=== PATIENT | female | born 1985 | race Two or more races ===

== ENCOUNTER 2025-01-19 16:58 | Emergency (ER) | payer MEDICAID, OTHER ==
[~2025-01-19] VITALS: Ht 167.6 cm; Wt 82.3 kg
[2025-01-19 17:06] VITALS: TEMP 98.1
[2025-01-19] MEDS: ONDANSETRON HCL 4 MG/2 ML VIAL IV ONE (17:23)
[2025-01-19] MEDS: MORPHINE SULFATE 4 MG/ML SYR/VIAL IV ONE (17:24)
--- NOTE | 2025-01-19 17:31 | ED.PDOC ---
History of Present Illness HPI Comments This is a 39-year-old female who comes in with chief complaint of injury to the right wrist. The patient was at work and climbing up to grab something off the top shelf and fell down and landed on her right wrist. The patient comes in with a co-worker with an obvious deformity to the right wrist. The patient states that she is having some numbness on her fingers. There is no discoloration at this time. Chief Complaint: Upper Extremity Time Seen by MD: 16:59 Primary Care Provider: UNKNOWN Reviewed Notes: Nurses Notes, Medications, Allergies (No allergies to medications) Allergies: Coded Allergies: NO KNOWN ALLERGIES (Unverified , 01/19/25) Information Source: Patient, Friend Mode of Arrival: Ambulatory Severity: Moderate Timing: Days Duration: Since onset Prehospital treatment: None Location: Right wrist deformity and pain Past Medical History PAST MEDICAL HISTORY: Denies Surgical History: Denies all surgeries PRECISION ASSEMBLY INSPECTOR History: No Pertinent PRECISION ASSEMBLY INSPECTOR History Family History Family History: No family hx of Cancer, No family hx of DM, No family hx of Heart ashley, No family hx of HTN Social History Smoker: Non-Smoker Alcohol: Denies ETOH Use Drugs: Denies Drug Use Lives In: Home Constitutional: denies: chills, diaphoresis, fatigue, fever, malaise, sweats, weakness, others EENTM: denies: blurred vision, double vision, ear bleeding, ear discharge, ear drainage, ear pain, ear ringing, eye pain, eye redness, hearing loss, mouth pain, mouth swelling, nasal discharge, nose bleeding, nose congestion, nose pain, photophobia, tearing, throat pain, throat swelling, voice changes, others Respiratory: denies: cough, hemoptysis, orthopnea, SOB at rest, shortness of breath, SOB with excertion, stridor, wheezing, others Cardiovascular: denies: chest pain, dizzy spells, diaphoresis, Dyspnea on exertion, edema, irregular heart beat, left arm pain, lightheadedness, palpitations, PND, syncope, others Gastrointestinal: denies: abdomen distended, abdominal pain, blood streaked bowels, constipated, diarrhea, dysphagia, difficulty swallowing, hematemesis, melena, nausea, poor appetite, poor fluid intake, rectal bleeding, rectal pain, vomiting, others Genitourinary: denies: abnormal vagina bleeding, burning, dyspareunia, dysuria, flank pain, frequency, hematuria, incontinence, pain, , vagina discharge, urgency, others Neurological: denies: dizziness, fainting, headache, left sided numbness, left sided weakness, numbness, paresthesia, pre-existing deficit, right sided numbness, right sided weakness, seizure, speech problems, tingling, tremors, weakness, others Musculoskeletal: reports: others (Right wrist deformity and pain); denies: back pain, gout, joint pain, joint swelling, muscle pain, muscle stiffness, neck pain Integumetry: denies: bruises, change in color, change in hair/nails, dryness, laceration, lesions, lumps, rash, wounds, others Allergic/Immunocompromised: denies: Difficulty Healing, Frequent Infections, Hives, Itching, others Hematologic/Lymphatic: denies: anemia, blood clots, easy bleeding, easy bruising, swollen glands, others Endocrine: denies: excessive hunger, excessive sweating, excessive thirst, excessive urination, flushing, intolerance to cold, intolerance to heat, unexplained weight gain, unexplained weight loss, others Psychiatric: denies: anxiety, bipolar disorder, depression, hopeless, panic disorder, schizophrenia, sleepless, suicidal, others Physical Exam General Appearance: Moderate Distress HEENT: Normal ENT Inspection, Pharynx Normal, TMs Normal Neck: Full Range of Motion, Non-Tender, Normal, Normal Inspection Respiratory: Chest Non-Tender, Lungs Clear, No Accessory Muscle Use, No Respiratory Distress, Normal Breath Sounds Cardiovascular: No Edema, No JVD, No Murmur, No Gallop, Normal Peripheral Pulses, Regular Rate/Rhythm Breast Exam: Deferred Gastrointestinal: No Organomegaly, Non Tender, No Pulsatile Mass, Normal Bowel Sounds, Soft Genitalia: Deferred Pelvic: Deferred Rectal: Deferred Extremities: No calf tenderness, Normal capillary refill, No pedal edema Musculoskeletal : Location: Right Extremity Location: Wrist Apperance: Deformity, Limited ROM, Tenderness: Severe Neurologic: Alert, operational trainer II-XII nml as Tested, No Motor Deficits, Normal Affect, Normal Mood, No Sensory Deficits Cerebellar Function: Normal Reflexes: Normal Skin: Dry, Normal Color, Warm Lymphatic: No Adenopathy Was a procedure done? Was a procedure done?: No Differential Dx Considerations may include: Fracture, strain, contusion, dislocation X-Ray, Labs, Meds, VS Vital Signs Date Time Temp Pulse Resp B/P (MAP) Pulse Ox O2 Delivery O2 Flow Rate FiO2 01/19/25 18:00 71 23 114/72 01/19/25 17:31 80 16 135/76 (95) 99 01/19/25 17:24 83 22 135/76 01/19/25 17:06 98.1 86 16 138/77 (97) 98 98.1 Lab Test 01/19/25 18:07 Range/Units White Blood Count 9.7 4.4-10.8 10^3/uL Red Blood Count 4.54 4.0-5.20 10^6/uL Hemoglobin 13.2 12.2-16.2 g/dL Hematocrit 40.7 36.0-46.0 % Mean Corpuscular Volume 89.7 80.0-100.0 fL Mean Corpuscular Hemoglobin 29.1 28.0-32.0 pg Mean Corpuscular Hemoglobin Concent 32.5 32.0-36.0 g/dL Red Cell Distribution Width 13.3 11.8-14.3 % Platelet Count 232 140-450 10^3/uL Mean Platelet Volume 9.8 6.9-10.8 fL Neutrophils (%) (Auto) 52.8 37.0-80.0 % Lymphocytes (%) (Auto) 36.4 10.0-50.0 % Monocytes (%) (Auto) 8.3 0.0-12.0 % Eosinophils (%) (Auto) 1.3 0.0-7.0 % Basophils (%) (Auto) 1.2 0.0-2.0 % Neutrophils # (Auto) 5.1 1.6-8.6 10 ^3/uL Lymphocytes # (Auto) 3.5 0.4-5.4 10 ^3/uL Monocytes # (Auto) 0.8 0-1.3 10 ^3/uL Eosinophils # (Auto) 0.1 0-0.8 10 ^3/uL Basophils # (Auto) 0.1 0-0.2 10 ^3/uL Nucleated Red Blood Cells 0.1 % Prothrombin Time 10.4 9.3-11.8 sec Prothrombin Time INR 0.98 0.9-1.15 Activated Partial Thromboplast Time 25.6 24.5-34.5 SEC Sodium Level 139 136-145 mmol/L Potassium Level 3.5 3.5-5.1 mmol/L Chloride Level 106 98-107 mmol/L Carbon Dioxide Level 22 20-31 mmol/L Anion Gap 11 5-15 Blood Urea Nitrogen 11 9-23 mg/dL Creatinine 0.92 0.550-1.02 mg/dL Glomerular Filtration Rate Calc 81 >90 mL/min BUN/Creatinine Ratio 12.0 10.0-20.0 Serum Glucose 119 H 74-106 mg/dL Calcium Level 9.8 8.7-10.4 mg/dL Current Medications Medications (Trade) Dose Ordered Sig/Sharon Route Start Time Stop Time Status Last Admin Morphine Sulfate 4 mg ONCE ONCE IV 01/19/25 17:15 01/19/25 17:16 DC 01/19/25 17:24 Ondansetron HCl (Zofran) 4 mg ONCE ONCE IV 01/19/25 17:15 01/19/25 17:16 DC 01/19/25 17:23 Sodium Chloride 1,000 ml @ 1,000 mls/hr Q1H ONCE IV 01/19/25 18:00 01/19/25 18:59 DC 01/19/25 18:00 Ketamine HCl (Ketalar) 160 mg ONCE ONCE IV 01/19/25 19:30 01/19/25 19:31 DC 01/19/25 19:37 Hep-Lock was established The patient was given morphine 4 mg IV push The patient is given Zofran 4 mg IV push for the nausea X-ray of the right wrist shows: FINDINGS/IMPRESSION: Markedly displaced fracture of the distal radial metadiaphysis with intra- articular extension. The distal radial fracture segments are displaced dorsally by 2 cm. Subtle lucency scaphoid waist could represent scaphoid waist fracture. Correlate with point tenderness. We contacted the orthopedic surgeon and they did come in and reduce the patient without any difficulty It required ketamine for sedation The patient was then splinted and will follow up with the orthopedic surgeon for scheduling surgery as an outpatient The patient will be given a prescription of [place] The patient's CBC and chemistry panel is within normal limits The patient did receive some Zofran for the vomiting that took place post ketamine X-ray was done post reduction and shows: FINDINGS/IMPRESSION: Interval reduction with improved alignment of distal radial fracture. Soft tissue swelling is seen around the wrist and forearm. Images Reviewed?: Images reviewed and evaluated by me Time of 1ST Reevaluation: 17:32 Reevaluation 1ST: Unchanged Patient Education/Counseling: Diagnosis, Treatment, Prognosis, Need For Follow Up Family Education/Counseling: No Family Present SEPSIS Sepsis Screen Date sepsis recognized/suspect: Jan 19, 2025 Time Sepsis recognized/suspect: 1657 Recent Procedure: No On Antibiotic Therapy: No Respiratory Rate >20: No Heart Rate >90: No Temp<36 C (96.8 F) or >38.3 C: No SBP <90 or MAP <65 mmHG: No New Acute Mental Status Change: No Is the patient on CPAP, BIPAP,: No Physician Orders Heplock Iv (01/19/25 17:05) Casework Specialist (01/19/25 17:05) Blood Pressure (01/19/25 17:05) Pulse Oximetry (01/19/25 17:05) R Wrist 2 View Xray (01/19/25 17:05) R Wrist 2 View Xray (01/19/25 19:00) Sedation (01/19/25 ) Vital Signs Date Time Temp Pulse Resp B/P (MAP) Pulse Ox O2 Delivery O2 Flow Rate FiO2 01/19/25 18:00 71 23 114/72 01/19/25 17:31 80 16 135/76 (95) 99 01/19/25 17:24 83 22 135/76 01/19/25 17:06 98.1 86 16 138/77 (97) 98 98.1 Laboratory Tests Test 01/19/25 18:07 White Blood Count 9.7 10^3/uL (4.4-10.8) Medications Medications Dose Ordered Sig/Sharon Route Start Time Stop Time Status Last Admin Dose Admin Ketamine HCl 160 mg ONCE ONCE IV 01/19/25 19:30 01/19/25 19:31 DC 01/19/25 19:37 Morphine Sulfate 4 mg ONCE ONCE IV 01/19/25 17:15 01/19/25 17:16 DC 01/19/25 17:24 Ondansetron HCl 4 mg ONCE ONCE IV 01/19/25 17:15 01/19/25 17:16 DC 01/19/25 17:23 Sodium Chloride 1,000 ml @ 1,000 mls/hr Q1H ONCE IV 01/19/25 18:00 01/19/25 18:59 DC 01/19/25 18:00 Departure 1 Departure Time of Disposition: 17:32 Impression: Primary Impression: Right wrist fracture Qualified Codes: S62.101A - Fracture of unspecified carpal bone, right wrist, initial encounter for closed fracture Disposition: 01 HOME / SELF CARE / HOMELESS Condition: Fair Discharged With: Self Critical Care Note Critical Care Time?: No Stability Stability form required: No Heart Score Heart Score: Heart Score Response (Comments) Value History N/A 0 EKG N/A 0 Age N/A 0 Risk Factors N/A 0 Troponin N/A 0 Total 0 ZEINAB SMART MD Jan 19, 2025 17:31
[2025-01-19] MEDS: SODIUM CHLORIDE 0.9% 1,000 ML IV ONE (18:00)
--- NOTE | 2025-01-19 18:00 | DVH ---
Indication: trauma Technique: XY R WRIST 2 VIEW XRAYXY Comparison: None FINDINGS/IMPRESSION: Markedly displaced fracture of the distal radial metadiaphysis with intra-articular extension. The di stal radial fracture segments are displaced dorsally by 2 cm. Subtle lucency scaphoid waist could represent scaphoid waist fracture. Correlate with jeffrey mahmood
[2025-01-19 18:17] LABS: Hematocrit 40.7 % (36.0-46.0); Hemoglobin 13.2 g/dL (12.2-16.2); Mean Corpuscular Hemoglobin 29.1 pg (28.0-32.0); Mean Corpuscular Volume 89.7 fL (80.0-100.0); Nucleated Red Blood Cells % 0.1 %
[2025-01-19 18:26] LABS: Chloride 106 mmol/L (98-107); Sodium 139 mmol/L (136-145)
[2025-01-19 18:27] LABS: Anion Gap 11 (5-15); Carbon Dioxide 22 mmol/L (20-31)
[2025-01-19 18:28] LABS: Calcium 9.8 mg/dL (8.7-10.4); Potassium 3.5 mmol/L (3.5-5.1)
[2025-01-19 18:32] LABS: Glucose 119 mg/dL (74-106)
[2025-01-19 18:33] LABS: BUN/Creatinine Ratio 12.0 (10.0-20.0); Blood Urea Nitrogen 11 mg/dL (9-23)
[2025-01-19 18:40] LABS: INR 0.98 (0.9-1.15); Partial Thromboplastin Time 25.6 SEC (24.5-34.5); Prothrombin Time 10.4 sec (9.3-11.8)
[2025-01-19] MEDS: LIDOCAINE 1% HCL (LOCAL ANESTH.) INJ 20ML MDV ONE (18:51)
[2025-01-19] MEDS: LIDOCAINE 1% HCL (LOCAL ANESTH.) INJ 20ML MDV ID ONE (18:52)
[2025-01-19] MEDS: KETAMINE 50mg/ML 10ml Vial (500mg/10ml) IV ONE (19:37)
[2025-01-19 19:45] VITALS: BP 124/74; PULSE 79; RESP 16; RESP 17; O2SAT 99
[2025-01-19 20:00] VITALS: PULSE 105
--- NOTE | 2025-01-19 20:27 | DVH ---
CLINICAL INDICATION: guidance for reduction TECHNIQUE: XY right WRIST 2 VIEW XRAY Comparison: XY R WRIST 2 VIEW XRAY on DOS: 01/19/25 FINDINGS/IMPRESSION: Interval reduction with improved alignment of distal radial fracture. Soft tissue swelling is seen around the wrist and forearm.
[2025-01-19] MEDS ORDERED: HYDR-4902 PO (20:57)
[2025-01-19] MEDS: ONDANSETRON HCL 4 MG/2 ML VIAL ONE (20:58)
--- NOTE | 2025-01-19 21:55 | DVHINCON2 ---
Consult Note Consult Consult Note reason for Consult: Right wrist injury after ground-level fall --- HISTORY OF PRESENT ILLNESS: Ms. Grey presented to the Emergency Department after sustaining a ground- level fall onto her right wrist. An X-ray confirmed a distal radius fracture, and orthopedics was consulted for evaluation, reduction, and treatment planning. The patient denied numbness, tingling, or weakness in the affected extremity. She reported localized wrist pain, without associated pain in the elbow or shoulder. --- PHYSICAL EXAMINATION (Right Upper Extremity): Wrist: Visible deformity noted, consistent with distal radius fracture. No open skin lesions No discharge No signs of infection Neurovascular: Grossly intact. Patient able to move all fingers following reduction. Capillary refill less than 2 seconds. POST REDUCTION Neurovascular: Grossly intact. Patient able to move all fingers following reduction. Capillary refill less than 2 seconds. Elbow: Full range of motion, no tenderness Shoulder: Full range of motion, no tenderness Splint Status: Sugar-tong splint and sling in place. Sling supports the right upper extremity. --- IMAGING REVIEW: Initial X-ray (Right Wrist): Displaced distal radius fracture, Possible scaphoid fracture? Post-Reduction X-ray: Improved alignment of the distal radius noted. No evidence of additional fractures. --- PROCEDURE: Procedure: Closed reduction of right distal radius fracture Consent: Oral consent obtained from the patient after discussion of procedure, risks, and benefits Sedation: Provided by Dr. Lawrence, ER Physician, using ketamine Reduction: Performed successfully. Immobilization: Right upper extremity placed in sugar-tong splint with sling Monitoring: Patient monitored for 25 minutes post-procedure, awake, alert, and oriented upon discharge from ortho service --- DISCUSSION & PLAN: Case discussed with Dr. Reyes (Orthopedic Surgeon), who agrees that patient will likely require surgical intervention if fracture alignment is not maintained Outpatient orthopedic follow-up scheduled within one week with repeat Xray, Also at followup obtain CT for Schaphoid eval Continue in sugar-tong splint until swelling improves Provided detailed splint precautions, including signs of worsening pain, numbness, tingling, or tightness Pain management to be continued per ER protocol No acute concerns at this time ER return for new or worsening s/s Disposition appropriate for outpatient management pending reassessment in ortho clinic Plan discussed with: Patient, Other (bedside nurse and ER physician) Visit Coding Surgery Date of Service if different f: Jan 19, 2025 Billing Provider: COLEEN HATHAWAY Surgery Visit Codes: 52306 - INP CONSULT <55 MIN COLEEN HATHAWAY Jan 19, 2025 21:54
== END 2025-01-19 22:15 | disposition home or self-care (01) ==
LOC: ER 16:58
DX: S62.101A Fracture of unspecified carpal bone, right wrist, initial encounter for closed fracture (principal); W19.XXXA Unspecified fall, initial encounter; Y93.89 Activity, other specified; Y92.89 Other specified places as the place of occurrence of the external cause; Y99.8 Other external cause status
CPT/HCPCS: 25605; 36415; 73100; 80048; 85025; 85610; 85730; 96361; 96374; 96375; 96376; 99285; J2003; J2270; J2405; J7030

== ENCOUNTER 2025-02-11 11:40 | Outpatient (CLI) | payer MEDICAID ==
[~2025-02-11 11:40] MED LIST: HYDR-4902 PO
[2025-02-11 12:41] LABS: Hematocrit 44.2 % (36.0-46.0); Hemoglobin 14.8 g/dL (12.2-16.2); Mean Corpuscular Hemoglobin 29.7 pg (28.0-32.0); Mean Corpuscular Volume 88.9 fL (80.0-100.0); Nucleated Red Blood Cells % 0.1 %
[2025-02-11 12:42] LABS: Urine Protein, UAD Negative (Negative)
[2025-02-11 12:47] LABS: Alanine Aminotransferase 11 U/L (7-40); Alkaline Phosphatase 75 U/L (46-116); Anion Gap 9 (5-15); BUN/Creatinine Ratio 10.0 (10.0-20.0); Calcium 9.6 mg/dL (8.7-10.4); Carbon Dioxide 26 mmol/L (20-31); Chloride 105 mmol/L (98-107); Glucose 93 mg/dL (74-106); Potassium 4.4 mmol/L (3.5-5.1); Sodium 140 mmol/L (136-145); Total Protein 7.6 g/dL (5.7-8.2)
[2025-02-11 12:48] LABS: Albumin 4.7 g/dL (3.2-4.8); Bilirubin, Total 0.4 mg/dL (0.2-1.0); INR 0.99 (0.9-1.15); Partial Thromboplastin Time 29.1 SEC (24.5-34.5); Prothrombin Time 10.5 sec (9.3-11.8)
[2025-02-11 12:49] LABS: Blood Urea Nitrogen 9 mg/dL (9-23)
== END 2025-02-11 17:00 | disposition home or self-care (01) ==
LOC: LAB 11:40
PROVIDERS: ATTEND Orthopaedic Surgery Adult Reconstructive Orthopaedic Surgery
DX: Z01.812 Encounter for preprocedural laboratory examination (principal); Z79.01 Long term (current) use of anticoagulants
CPT/HCPCS: 36415; 80053; 81001; 84702; 85025; 85610; 85730